=== PATIENT | male | born 2005 | race Caucasian/White ===

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

== ENCOUNTER 2024-08-30 07:15 | Emergency (ER) | payer BC, SELFPAY ==
--- OUTSIDE RECORDS SUMMARY | 2023-05-05 16:56 | XMS_ITS ---
Author Organization [facility] [place] Address [address] [place] [address] Care Team Providers Care Powdered Metal Supervisor Name Role Phone Maged Owen Primary Care Provider ALFONSO OWEN Unavailable [phone] REASON FOR VISIT Flu Results Medications Medication SIG (Take, Route, Frequency, Duration) Notes Start Date End Date Status Tamiflu 75 MG 1 capsule Orally Twice a day for 5 0 05/05/2023 Active Encounters Encounter Location Date Provider Diagnosis [facility] [address] [place] [address] 05/05/2023 ALFONSO OWEN Plan Of Treatment Medication Medication Name Sig Start Date Stop Date Notes Tamiflu 75 MG 1 capsule Orally Twice a day for 5 Progress Notes * Nikita GALDAMEZ MDOB: 4 (18 yo M)Acc No.[id number]:05/05/2023 Patient: S scoobyje Nikita Ortega :2005 A ge:18 Y S ex:Male Address:[address] [place] [address], [id number] * Refills Start Tamiflu Capsule, 75 MG, Orally, 10, 1 capsule, Twice a day, 5 * true * Date: Generated for Yoditi ng/Faxing/eTransmitting on: 0 08/30/2024 07:38 AM EDT
--- OUTSIDE RECORDS SUMMARY | 2024-03-19 07:48 | XMS_ITS ---
Author Organization [facility] in [place] Address [address] [place] [address] Care Team Providers Care Director Of Event Management Name Role Phone Maged Pinto Primary Care Provider REASON FOR VISIT Dulera no longer formulary Medications Medication SIG (Take, Route, Frequency, Duration) Notes Start Date End Date Status Fluticasone-Salmeterol 115-21 MCG/ACT 2 puffs Inhalation Twice a day 03/19/2024 Active Encounters Encounter Location Date Provider Diagnosis [address] [address] 03/19/2024 Maged Pinto Plan Of Treatment Medication Medication Name Sig Start Date Stop Date Notes Fluticasone-Salmeterol 115-2 1 MCG/ACT 2 puffs Inhalation Twice a day 03/19/2024 Progress Notes * Nikita FARRELL MDOB: 4 (19 yo M)Acc No.[id number]:03/19/2024 Patient: S MERCEDEZ Nikita Shannon :2005 A ge:19 Y S ex:Male Address:[address] [place] [address], [id number] * Refills Start Fluticasone-Salmeterol Aerosol, 115-21 MCG/ACT, Inhalation, 1, 2 puffs, Twice a day, Refills=11 * true * Date: Generated for Printi ng/Faxing/eTransmitting on: 0 08/30/2024 07:38 AM EDT
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
[2024-08-30 07:20] VITALS: BP 121/70; PULSE 66; TEMP 36.3; O2SAT 98; BMI 22.9
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
--- OUTSIDE RECORDS SUMMARY | 2024-08-30 07:38 | XMS_ITS | Clinical Summary ---
Author Organization [facility] Address [address] [place], [place] [id number] Care Team Providers Care Automobile Designer Name Role Phone Chio Celaya MD Primary Care Provider Medications meloxicam (MOBIC) 7.5 mg tablet Take 7.5 mg by mouth once daily. Active mometasone-form oterol (DULERA) 100-5 mcg/actuation inhaler Inhale 2 Puffs as instructed twice daily. Active albuterol HFA (VENTOLIN HFA) 90 mcg/actuation inhaler Inhale 2 Puffs as instructed. Active montelukast chewable (SINGULAIR) 5 mg chewable tablet Take 5 mg by mouth daily at bedtime. Active Active Problems Problem Noted Date Diagnosed Date Sever's apophysitis, bilateral 12/13/2016 Bone lesion 12/13/2016 DEWAYNE positive 12/13/2016 Social History Tobacco Use Types Packs/Day Years Used Date Smoking Tobacco: Never Sex and Gender Information Value Date Recorded Sex Assigned at Not on file Legal Sex Male 3:02 PM EDT Gender Identity Not on file Sexual Orientation Not on file Last Filed Vital Signs Vital Sign Reading Time Taken Comments Blood Pressure 117/79 12/13/2016 9:59 AM EDT Pulse 68 12/13/2016 9:59 AM EDT Temperature 36.6 C (97.8 F) 12/13/2016 9:59 AM EDT Respiratory Rate - - Oxygen Saturation 100% 12/13/2016 9:59 AM EDT Inhaled Oxygen Concentration - - Weight 44.7 kg (98 lb 9.6 oz) 12/13/2016 9:59 AM EDT Height 148.5 cm (4' 10.47 ) 12/13/2016 9:59 AM E DT Body Mass Index 20.28 12/13/2016 9:59 AM EDT Plan of Treatment Health Maintenance Due Date Last Done Comments Peds To Adult Transition Initial Discussion 2016 Peds To Adult Transition Annual Assessment 02/21/2018 HPV Vaccine (1 - Male 3-dose series) 02/21/2019 Meningococcal B Vaccine (1 of 2 - Standard) 2020 Anxiety Screening 02/21/2022 Depression Screening 02/21/2022 HIV Screening 02/21/2022 Hepatitis C Screening 02/21/2022 DTaP,Tdap,Td Vaccine (1 - Tdap) 02/21/2023 Hepatitis B Vaccine (1 of 3 - 19+ 3-dose series) 02/21 Covid-19 Vaccine (1 - season) 2023 Influenza Vaccine (Season Ended) [address] [facility] PPO Care Teams Automobile Designer Relationship Specialty Start Date End Date Chio Celaya MD [facility] [place] [address] PCP - General Pediatrics 12/06/16
--- OUTSIDE RECORDS SUMMARY | 2024-08-30 07:38 | XMS_ITS | Patient Health Record ---
Author Organization [facility] [place] Address [address] [place] [address] Care Team Providers Care Refueling Rampman Name Role Phone Maged Pinto Primary Care Provider Allergies Allergen (clinical drug ingredient) Drug/Non Drug Allergy documented on EMR Reaction Allergy Type Onset Date Status Nuts (uncoded) anaphylaxis Allergy Act anastacio azithromycin Zithromax Unknown Drug Allergy Acti ve peanut allergenic extract Peanut (Diagnostic) Unknown Drug Allergy Active Reason For Referral No Information Medications Medication SIG (Take, Route, Frequency, Duration) [...] Question Answer Notes Patient is a nonsmoker Alcohol Screen (Audit-C) Question Answer Notes Did you have a drink containing alcohol in the p ast year? No Points 0 Interpretation Negative AUDIT-C (Standard) Question Answer Notes Did you have a drink containing alcohol in the p ast year? No Points 0 Interpretation Negative Problems Problem Type SNOMED Code ICD Code Onset Dates Problem Status W/U Status Risk Notes Problem Asthma (511943753) Asthma (J45.909) Active confirmed Problem Gastroesophageal reflux disease (175414224) GERD (gastroesopha geal reflux disease) (K21.9) Active confirmed Problem Eczema (08610520) Eczema (L30.9) Active confirmed Problem Allergic rhinitis (75641716) Allergic rhinitis (J30.9) Active confirmed Problem Gastritis (8436558) Gastritis (K29.70) Active confirmed Problem Well adult (158585122) Well adult (Z00.00) Active confirmed Problem Sever's disease (39397454) Sever's disease (M92.8) Active confirmed Vital Signs Temperature 99.1 degrees Fahrenheit 05/14/2024 Blood pressure diastolic 60 mm Hg 05/14/2024 Height 69 in 05/14/2024 Blood pressure systolic 100 mm Hg 05/14/2024 Weight 164.2 lbs 05/14/2024 BMI 24.25 kg/m2 05/14/2024 Encounters Encounter Location Date Provider Diagnosis [facility] [address] [place] [address] 03/19/2024 Maged Pinto [facility] [address] [place] [address] 05/14/2024 Maged Pinto Acute non-recurrent sinusitis, unspecified location J01.90 ; Nasal congestion R09.81 and Acute bronchitis, unspecified organism J20.9 Assessments Encounter Date Diagnosis (ICD Code) Assessment Notes Treatment Notes Treatment Clinical Notes Section Notes 05/14/2024 Acute non-recurrent sinusitis, unspecified location (ICD-10 - J01.90) Rest and drink more liquids, especially water. You may use a humidifier or vaporizer to help keep the drainage moist. Oykc-ivv-jaoznpf Nasal Saline may help the stuffy and runny nose. Use Ibuprofen and or Tylenol as needed for fever, chills, body aches or pain. Children 5 years old should not be given ktnw-fot-ixvwdoy cough and cold medications such as guaifenesin and dextromethorphan. If you're over age 5, you may try bbmi-ezs-ablsryj cold medications such as guaifenesin and dextromethorphan, [...] vaporizer to help keep the drainage moist. Xyjy-nzj-bmsshrc Nasal Saline may help the stuffy and runny nose. Use Ibuprofen and or Tylenol as needed for fever, chills, body aches or pain. Children 5 years old should not be given waja-ilt-afvlxby cough and cold medications such as guaifenesin and dextromethorphan. If you're over age 5, you may try qyfo-raf-jaroewn cold medications such as guaifenesin and dextromethorphan, [...] room or call 911 Plan Of Treatment No Information Insurance Providers Payer Name Payer Address Payer Phone Subscriber Number Group Number Insured Name Patient Relationship to Insured Coverage Start Date Coverage End Date [employer]ESS PPO PLUS LOCAL PLAN [address] [place] [phone] [id number] [facility] Self - patient is the insured Medical (General) History Medical History History ICD Code Gastritis K29.70 Well adult Z00.00 GERD (gastroesophageal reflux disease) K 21.9 Allergic rhinitis J30.9 Sever's disease M92.8 Eczema L30.9 Asthma J45.909
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
--- OUTSIDE RECORDS SUMMARY | 2024-08-30 07:38 | XMS_ITS | Clinical Summary ---
Author Organization [facility] Address [address] [place] [address] Care Team Providers Care Director Perioperative Name Role Phone Unavailable Primary Care Provider Unavailabl e Social History Tobacco Use Types Packs/Day Years Used Date Smoking Tobacco: Never Assessed Sex and Gender Information Value Date Recorded Sex Assigned at Not on file Legal Sex Male 7:12 PM EDT Gender Identity Not on file Sexual Orientation Not on file Last Filed Vital Signs Vital Sign Reading Time Taken Comments Blood Pressure 121/68 12/26/2018 12:00 PM EDT Pulse - - Temperature - - Respiratory Rate - - Oxygen Saturation - - Inhaled Oxygen Concentration - - Weight 57.2 kg (126 lb) 12/26/2018 12:00 PM EDT Height 167.6 cm (5' 6 ) 12/26/2018 12:00 PM EDT Body Mass Index 20.34 12/26/2018 12:00 PM EDT Plan of Treatment Not on file
== END 2024-08-30 09:01 | disposition home or self-care (01) ==
PROVIDERS: Emergency Provider Emergency Medicine; PCP Family Medicine
DX: S92.241A Displaced fracture of medial cuneiform of right foot, initial encounter for closed fracture (principal); V86.56XA Driver of dirt bike or motor/cross bike injured in nontraffic accident, initial encounter
CPT/HCPCS: 73630; 99283